=== PATIENT | female | born 1990 | race Caucasian/White ===

== ENCOUNTER → 2016-05-01 | Outpatient (CLI) | payer BC, OTHER ==
[~2016-05-01] MED LIST: MTR600X PO; PEDICHW; PRENTAB26 PO
[2016-05-01 16:57] LABS: INFLUENZA A PCR POS for Influ A (NEG); INFLUENZA B PCR Neg for Influ B (NEG)
== END | disposition home or self-care (01) ==
LOC: C.LABSPEC 15:08
PROVIDERS: ATTEND Family Medicine
DX: J06.9 Acute upper respiratory infection, unspecified (principal); B97.89 Other viral agents as the cause of diseases classified elsewhere

== ENCOUNTER 2016-06-08 23:55 | Inpatient (IN) | payer OTHER ==
[~2016-06-08] VITALS: Ht 175.3 cm; Wt 89.4 kg
[~2016-06-08 23:55] MED LIST changes: -PRENTAB26 PO
[2016-06-09] MEDS ORDERED: LACTATED RINGER'S 1000ML 1,000 ML IV PRN (00:39)
[2016-06-09] MEDS ORDERED: LACTATED RINGER'S 1000ML 1,000 ML IV SCH (00:39)
--- NOTE | 2016-06-09 01:13 | HISTORY & PHYSICAL EXAMINATION ---
DATE OF ADMISSION: 06/09/2016 CHIEF COMPLAINT: Spontaneous rupture of membranes. HISTORY OF PRESENT ILLNESS: The patient is a 26-year-old 3, para 2, at 40 weeks and 1 day gestation, who was admitted to labor and delivery for spontaneous rupture of membranes which occurred at approximately 10:00 p.m. on 06/08/2016. On arrival, she was grossly ruptured. She was found to be 4 cm, 75% effaced, and -2 station. heart tones are category 1, contractions every 2-3 minutes. Her care has been uncomplicated and she is GBS negative. PAST MEDICAL HISTORY: Significant for -induced hypertension with her first . PAST SURGICAL HISTORY: [place] teeth removed and appendectomy. SOCIAL HISTORY: The patient denies tobacco, alcohol or drug use. MEDICATIONS: vitamins. ALLERGIES: No known drug allergies. LABS: Blood type is O positive, group B strep negative, rubella immune, hepatitis B surface antigen negative, RPR nonreactive. PHYSICAL EXAMINATION: VITAL SIGNS: Blood pressure is 125/82, heart rate of 118, temperature of 98.1, respiration rate of 18. GENERAL: The patient is awake, alert and oriented x3. She is in moderate distress from her contractions. HEART: Regular rate and rhythm. LUNGS: Clear to auscultation bilaterally. ABDOMEN: Gravid uterus, appropriate for gestational age. Bowel sounds present x4. EXTREMITIES: No clubbing, cyanosis or calf tenderness. VAGINAL EXAM: She is currently 4 cm, 75% effaced, and -2 station, with clear amniotic fluid noted. heart tones are category 1. ASSESSMENT AND PLAN: A 26-year-old 3, para 2, at 40 weeks and 1 day gestation, will be admitted to labor and delivery for active labor and spontaneous rupture of membranes. She currently does not want an epidural. We will augment labor as needed and anticipate vaginal delivery.
[2016-06-09 01:21] LABS: MEAN CELL VOLUME 79.4 fL (80-100); MEAN CORPUSCULAR HEMOGLOBIN 26.8 pg (25-34); MEAN CORPUSCULAR HGB CONC 33.7 g/dl (32-36); MEAN PLATELET VOLUME 10.5 fL (7.4-10.4); PLATELET COUNT 200 K/uL (130-400); RED BLOOD COUNT 4.41 M/uL (4.2-5.4); WHITE BLOOD COUNT 9.75 K/uL (4.8-10.8)
[2016-06-09] MEDS ORDERED: PRENTAB26 PO (01:30)
[2016-06-09 01:31] VITALS: Ht 175.3 cm; Wt 89.4 kg
[2016-06-09] MEDS ORDERED: OXYTOCIN 30 UNITS/500ML NSS IV ONE (06:55)
[2016-06-09] MEDS ORDERED: ACETAMINOPHEN 325 MG TAB PO PRN (07:15)
[2016-06-09] MEDS ORDERED: DIPHTHERIA/TETANUS/PERTUSSIS 0.5 ML SYR/VIAL IM. ONE (07:15)
[2016-06-09] MEDS ORDERED: ACETAMINOPHEN/CODEINE 300/30MG TAB PO PRN ×2 (07:15)
[2016-06-09] MEDS ORDERED: BENZOCAINE 20% AER SPR 82.5 GM CAN EXT PRN (07:15)
[2016-06-09] MEDS ORDERED: HYDROCORTISONE ACETATE 25 MG SUPP PR PRN (07:15)
[2016-06-09] MEDS ORDERED: OXYCODONE/ACETAMINOPHEN 5-325 TAB PO PRN (07:15)
[2016-06-09] MEDS ORDERED: LANOLIN OINT EXT PRN ×2 (07:15)
[2016-06-09] MEDS ORDERED: IBUPROFEN 600 MG TAB PO PRN (07:15)
[2016-06-09] MEDS ORDERED: SUPERCREAM 0.870 % 15GM JAR EXT PRN (07:15)
[2016-06-09] MEDS ORDERED: OXYTOCIN 30 UNITS/500ML NSS IV PRN (07:15)
[2016-06-09] MEDS: PRENATAL VITAMIN TAB PO SCH (08:12)
[2016-06-09] MEDS: DOCUSATE SODIUM 100 MG CAP PO SCH ×2 (08:12→20:25)
[2016-06-09] MEDS: FERROUS SULFATE 325 MG TAB PO SCH (08:12)
--- NOTE | 2016-06-09 08:55 | DELIVERY SUMMARY ---
DATE OF OPERATION: 06/09/2016 DATE OF DELIVERY: 06/09/2016. TIME OF DELIVERY: 6:57 a.m. DELIVERY OF PLACENTA: 7 a.m. DELIVERY NOTE: The patient is a 26-year-old 3, para 2 at 40 weeks and 1 day gestation who presented to labor and delivery with spontaneous rupture of membranes that occurred at 10 p.m. on 06/08/2016. She was harpal spontaneously on her own every 2-3 minutes on arrival. She was found to be 4 cm, 75% efface, -2 station. She progressed on her own. She did not receive an epidural for anesthesia. She reached complete dilation at 6:51 a.m. with the urge to push. She pushed to delivery at 6:57 a.m. She delivered a viable male infant in the left occiput anterior position to an intact perineum. Once the baby was delivered it was placed on the patient's abdomen. Cord was clamped x2 and cut. Apgars were 8 at 1 minute and 9 at 5 minutes. Please see nursing notes for further baby assessment. Cord blood was then obtained and an intact placenta with 3-vessel cord was delivered at 7 a.m. The lower uterine segment and vagina was cleared of any blood clots and debris. Oxytocin infusion was then begun. Exploration of the perineum noted no lacerations. Estimated blood loss was 250 mL. All sponge and instrument counts were found to be correct x2. Both patient and baby tolerated the delivery well and were in recovery with stable vital signs. I attest to the content of the Intraoperative Record and any orders documented therein. Any exceptio ns are noted below.
[2016-06-09 09:30] VITALS: BP 126/70; PULSE 71; TEMP 36.8
[2016-06-09 13:10] VITALS: BP 116/74; PULSE 72; TEMP 36.7
[2016-06-09 15:35] VITALS: BP 118/71; PULSE 68; TEMP 36.8; O2SAT 98
[2016-06-09 20:25] VITALS: BP 117/74; PULSE 67; TEMP 37; O2SAT 98
[2016-06-10 00:40] VITALS: BP 122/79; PULSE 75; TEMP 36.6; O2SAT 99
[2016-06-10 04:10] VITALS: BP 117/75; PULSE 63; TEMP 36.5; O2SAT 97
[2016-06-10 06:21] LABS: HEMATOCRIT 31.7 % (37-47)
[2016-06-10 08:15] VITALS: BP 118/74; PULSE 76; TEMP 36.9; O2SAT 99
[2016-06-10] MEDS: FERROUS SULFATE 325 MG TAB PO SCH (08:15)
[2016-06-10] MEDS: PRENATAL VITAMIN TAB PO SCH (08:15)
[2016-06-10] MEDS: DOCUSATE SODIUM 100 MG CAP PO SCH ×2 (08:15→20:00)
--- NOTE | 2016-06-10 10:00 | OB/GYN Progress Note ---
[facility] Progress Note Date of Service Jun 10, 2016. Subjective conversation w/ patient, physical exam Ambulation: ambulating normally Voiding: no voiding problems Passing Gas: Yes Diet Tolerance: Regular Diet Lochia: Moderate Feeding Type: Breast Feeding Review of Systems Constitutional: No chills, No fatigue, No fever, No problem reported, No sweats , No weakness, No weight loss Respiratory: No cough, No dyspnea at rest, No dyspnea on exertion, No hemoptysis, No problem reported, No shortness of breath, No sputum, No wheezing Cardiac: No PND, No chest pain, No claudication, No edema, No orthopnea, No palpitations, No problem reported Breast: No breast lump, No breast pain, No change in shape, No nipple discharge , No problem reported, No see HPI Abdomen: No GI bleeding, No constipation, No diarrhea, No nausea, No pain, No problem reported, No vomiting Female : No abnormal vaginal bleeding, No dysuria, No hematuria, No incontinence, No problem reported, No see HPI, No urinary frequency, No vaginal discharge PPD#2 pt doing well no complaints disch AM Objective Vital Signs Date Time Temp Pulse Resp B/P Pulse Ox O2 Delivery O2 Flow Rate FiO2 06/10/16 08:15 Room Air 06/10/16 08:15 36.9 76 18 118/74 99 Room Air 06/10/16 04:10 36.5 63 16 117/75 97 Room Air 06/10/16 00:40 36.6 75 18 122/79 99 Room Air 06/10/16 00:40 99 Room Air 06/09/16 20:25 37.0 67 16 117/74 98 Room Air 06/09/16 15:35 36.8 68 16 118/71 98 Room Air 06/09/16 15:35 Room Air 06/09/16 13:10 36.7 72 16 116/74 Room Air Laboratory Results Last 24 Hours Test 06/10/16 05:46 Hemoglobin 10.4 g/dL Hematocrit 31.7 %
[2016-06-10 16:00] VITALS: BP 119/78; PULSE 67; TEMP 36.9
[2016-06-10] MEDS ORDERED: BISACODYL 5 MG TABEC PO SCH (20:00)
[2016-06-11 00:20] VITALS: BP 117/73; PULSE 67; TEMP 36.5; O2SAT 98
[2016-06-11] MEDS ORDERED: BISACODYL 10 MG SUPP PR PRN (07:00)
[2016-06-11 07:15] LABS: HEMATOCRIT 32.5 % (37-47); MEAN CELL VOLUME 80.6 fL (80-100); MEAN CORPUSCULAR HEMOGLOBIN 26.6 pg (25-34); MEAN CORPUSCULAR HGB CONC 32.9 g/dl (32-36); MEAN PLATELET VOLUME 10.2 fL (7.4-10.4); PLATELET COUNT 160 K/uL (130-400); RED BLOOD COUNT 4.03 M/uL (4.2-5.4); WHITE BLOOD COUNT 7.58 K/uL (4.8-10.8)
[2016-06-11 07:46] VITALS: BP 119/77; PULSE 65; TEMP 36.3; O2SAT 100
[2016-06-11] MEDS: PRENATAL VITAMIN TAB PO SCH (07:54)
[2016-06-11] MEDS: FERROUS SULFATE 325 MG TAB PO SCH (07:54)
[2016-06-11] MEDS: DOCUSATE SODIUM 100 MG CAP PO SCH (07:54)
--- NOTE | 2016-06-11 09:11 | Discharge Instructions ---
Discharge Instructions Date of Service Jun 11, 2016. Admission Reason for Admission: Active Labor At Term, Srom, Term Discharge Discharge Diagnosis / Problem: Vaginal Delivery Discharge Goals Goal(s): Routine recovery after delivery Medications Continue Dispensed Medications: supercream, dermaplast, tucks, lansinoh Activity Recommendations Activity Limitations: per Instructions/Follow-up section . Instructions / Follow-Up Instructions / Follow-Up ACTIVITY RECOMMENDATIONS: * Gradual return to full activity over the next 2-3 weeks. * No lifting - nothing heavier than baby over the next 2-3 weeks. * Do not engage in vigorous exercise, sexual activity or sports until cleared by your physician. * Do not drive or operate any motorized equipment until cleared by your physician. * You may shower/bathe daily. BREAST CARE: If you are not breast feeding: * Wear a supportive bra 24 hours a day for one to two weeks. * Avoid stimulating your breasts and nipples as much as possible during the first few weeks after delivery. * When taking a shower, have the warm water hit your back, not breasts. * When your breasts feel full, apply ice packs. Usually three to four times a day helps ease the discomfort. * Take a mild pain medication (Tylenol/Motrin) when you are uncomfortable. If breast feeding: * Use breast milk to lubricate nipples. Lansinoh cream may be used for sore nipples. You do not need to remove cream prior to breast feeding. If using a different brand of cream, check the label for directions regarding removal of cream prior to nursing. * Wear a supportive bra. * If having problems with breasts or breast feeding, call a medical cost consultant or your health care provider. EPISIOTOMY CARE: After delivery, if you have an episiotomy (stitches), the following steps will ease discomfort and aid healing. * For the first 24 hours after delivery, place ice packs next to your episiotomy to help reduce swelling. * After the first 24 hour-period, sitz baths, either portable or in the tub, are suggested. A shower with a shower arm sprayed over the episiotomy may be comforting. * [place] care should be done after each voiding and bowel movement. Squirt warm water from a plastic bottle over the perineum (region of the body between the anus and urinary opening) and pat dry. * Use Dermoplast to ease discomfort. Shake container. [place] directly over the episiotomy. * Place a Tucks on a clean sanitary pad next to your episiotomy. OVER THE COUNTER MEDICATION: * For discomfort or pain, you may use Acetaminophen (Tylenol), Ibuprofen (Advil ), or Naproxen (Aleve) following the package directions. * For constipation you may use Colace following the package directions. SPECIAL CARE INSTRUCTIONS: When you are discharged from the hospital, it is important for you to follow the instructions listed below: * During the first week at home, you should be able to care for yourself and your baby. In addition, the usual light household activities are encouraged. * Limit your activities to the way you feel. Do not try to clean the house or move furniture. Be sensible. * If you actively engage in sports and have done so up until the time of your delivery, you may resume these activities as soon as you feel able. This may take up to one month or even longer. Use good judgment. * Continue to take your vitamins for at least six weeks after the of your baby. * Your diet need not be limited unless you were on a special diet before your delivery. Breast-feeding mothers need around 2500 calories per day and at least 64-80 ounces of fluid per day (8 to 10 glasses). * You should eat foods from the four major food groups. Crash diets or fad diets are to be avoided. Eating lean meats, fresh fruits and vegetables, low-fat dairy products, high fiber foods and a regular exercise program, will help you get back to your pre- weight without putting your health at risk. * Constipation is sometimes a problem after delivery. Take a mild laxative as needed. If breast feeding, Milk of Magnesia is acceptable to use. You may use a suppository or Fleets enema if no episiotomy. * A daily shower or tub bath is suggested. Be sure to thoroughly and gently dry the perineum. * A bloody vaginal discharge will usually continue until around four weeks post . A small amount of bleeding may continue for as long as six weeks. Vaginal discharge changes from the bright red bleeding after delivery to pink then brownish and finally yellowish-pink before becoming white and disappearing. * Bleeding may increase with activity. Your first period may come in 4-8 weeks. If you are breast feeding, your period may be delayed even longer. * [employer] (sex) can begin whenever both you and your partner feel comfortable and do not have any form of genital infection. It is recommended that you wait until after your return appointment and discuss with your physician. If you have questions, please talk to your health care practitioner. A condom should be used to prevent infection and . * Foreplay, gentle intercourse and lubrication is very important the first several times to prevent pain. A water-based lubricant such as K-Y jelly or Astroglide may be used. * Tampons may be used six weeks after delivery. * Douching should be avoided for 6 weeks after delivery. * If you have RH negative blood and your baby is RH positive, you will receive RHOGAM by injection prior to discharge. The nurse will give you a card to keep with you that has the date and place that you received RHOGAM after delivery. * During your care, you had a Rubella screen done to check for the presence of rubella antibodies in your blood. If your test was negative, you will receive a Rubella vaccine prior to discharge. This vaccine may cause a fever, soreness at the injection site and flu-like symptoms. If these symptoms persist, notify your health care practitioner. is not advised for three months after a Rubella vaccine. There is a higher chance of having a baby with defects if conceived within three months of getting the vaccine. * If you were discharged 24 hours from delivery or before 48 hours: Visiting nurses will come to your home 48 hours after discharge to assess you and your baby. The visiting nurse will meet with you while you are in the hospital to arrange a time and get directions to your home. * Verbalizes understanding of car seat law as reviewed with patient nursing. * Car Seat hand-out given and reviewed with patient by nursing. * Shaken baby information reviewed with patient by nursing. Call you doctor if: * Heavy bleeding (saturating several pads an hour) or passing clots the size of your fist. * A fever >101 degrees F (38.3 degrees C) on two occasions four hours apart and/or chills. * Unusual pain in the pelvic or vaginal areas. * "Baby Blues" lasting longer than two weeks. If you have any questions or concerns, call your health care practitioner at . FOLLOW-UP VISIT: * Please call the office at to schedule a 6 week examination. It is important you keep this appointment. * It is important for you to make arrangements for either yearly or twice yearly check-ups thereafter. Current Hospital Diet Patient's current hospital diet: Regular OB Diet Discharge Diet Recommended Diet: Regular OB Diet Pending Studies Studies pending at discharge: no Medical Emergencies . Who to Call and When: Medical Emergencies: If at any time you feel your situation is an emergency, please call 911 immediately. . Non-Emergent Contact Non-Emergency issues call your: Assistant Service Manager . . "Provider Documentation" section prepared by Froy Briggs. VTE Core Measure Inpt VTE Proph given/why not?: Treatment not indicated
--- NOTE | 2016-06-11 09:12 | OB/GYN Progress Note ---
[facility] Progress Note Date of Service Jun 11, 2016. Subjective conversation w/ patient, physical exam Ambulation: ambulating normally Voiding: no voiding problems Passing Gas: Yes Diet Tolerance: Regular Diet Lochia: Small Feeding Type: Breast Feeding Pain: 04/13 Notes: Doing well, no concerns. Would like to go home today. Objective Vital Signs Date Time Temp Pulse Resp B/P Pulse Ox O2 Delivery O2 Flow Rate FiO2 06/11/16 07:46 36.3 65 16 119/77 100 Room Air 06/11/16 00:20 36.5 67 18 117/73 98 Room Air 06/11/16 00:20 98 Room Air 06/10/16 16:00 36.9 67 18 119/78 Room Air 06/10/16 16:00 Room Air Physical Exam General Appearance: WELL-APPEARING Respiratory/Chest: chest non-tender, lungs clear Cardiovascular: regular rate, rhythm Abdomen: normal bowel sounds, soft Fundus: Firm Extremities: normal range of motion, non-tender, no calf tenderness Laboratory Results Last 24 Hours Test 06/11/16 06:55 White Blood Count 7.58 K/uL Red Blood Count 4.03 M/uL Hemoglobin 10.7 g/dL Hematocrit 32.5 % Mean Corpuscular Volume 80.6 fL Mean Corpuscular Hemoglobin 26.6 pg Mean Corpuscular Hemoglobin Concent 32.9 g/dl RDW Standard Deviation 46.6 fL RDW Coefficient of Variation 15.9 % Platelet Count 160 K/uL Mean Platelet Volume 10.2 fL Assessment and Plan Post- Day Number: 2 Continue Routine Care: -D/C home today -F/U in 6 weeks.
[2016-06-11 11:44] VITALS: BP_DIAS 77; PULSE 65; TEMP 36.3
== END 2016-06-11 11:44 | disposition home or self-care (01) | DRG 775 ==
LOC: C.OPB 23:55 → C.LD 23:56 → C.OPB 06-09 00:40 → C.LD 06-09 00:40 → C.OBG 06-09 13:46
PROVIDERS: ADMIT Obstetrics & Gynecology; ATTEND Obstetrics & Gynecology
PROC: 10E0XZZ Delivery of Products of Conception, External Approach (ICD-10-PCS; principal; 2016-06-09)
DX: O42.02 Full-term premature rupture of membranes, onset of labor within 24 hours of rupture (principal); O99.214 Obesity complicating childbirth; Z37.0 Single live birth; O48.0 Post-term pregnancy; E66.9 Obesity, unspecified; O99.02 Anemia complicating childbirth; D64.9 Anemia, unspecified; Z3A.40 40 weeks gestation of pregnancy; Z68.29 Body mass index [BMI] 29.0-29.9, adult

== ENCOUNTER 2016-11-08 18:11 | Emergency (ER) | payer OTHER ==
[~2016-11-08] VITALS: Ht 172.7 cm; Wt 77.0 kg
[~2016-11-08 18:11] MED LIST changes: -MTR600X PO; -PEDICHW; +PRENTAB26 PO
[2016-11-08 18:12] VITALS: TEMP 36.5; Ht 172.7 cm; Wt 77.0 kg
--- NOTE | 2016-11-08 18:41 | EMERGENCY ROOM VISIT NOTE ---
History First contact with patient: 18:17 Chief Complaint: LACERATION/CUT (SUT/DERMABOND) Stated Complaint: CUT L THUMB Nursing Triage Summary: lac on thumb pad on the left side while using a knife to get wax out of a candle warmer History of Present Illness The patient is a 26 year old female who presents to the Emergency Room with complaints of a laceration to her left thumb. The patient was attempting to pry cold wax out of a wax warmer and cut her thumb. The patient denies any significant pain or bleeding. Tetanus immunization is up-to-date. The patient is [id number]. Review of Systems 6 system review was performed and was negative except for pertinent positives and negatives as indicated in history of present illness Past Medical/Surgical History Medical Problems: (1) Active labor at term (2) SROM (spontaneous rupture of membranes) (3) Term Family History FH: cancer FH: diabetes mellitus Social History Smoking Status: Former Smoker Alcohol Use: none Drug Use: none Marital Status: single Occupation Status: employed Current/Historical Medications No Active Prescriptions or Reported Meds Physical Exam Vital Signs Date Time Temp Pulse Resp B/P (MAP) Pulse Ox O2 Delivery O2 Flow Rate FiO2 11/08/16 18:12 36.5 89 16 138/93 100 Room Air Physical Exam CONSTITUTIONAL: Healthy and well nourished. Alert and oriented X 3 with positive affect. MUSCULOSKELETAL: Examination of the left thumb digital pad shows a 1 cm laceration that is well approximated. The patient is playing with the wound, trying to open it with difficulty. There is no active bleeding. Capillary refill is less than 2 seconds. INTEGUMENTARY: No rash or other significant dermatologic conditions noted. NEUROLOGIC: No focal neurologic deficits noted. Left thumb tip is sensory intact. Medical Decision & Procedures ED Course Patient history and physical exam were performed. Nurse's notes were reviewed. Vital signs were reviewed and were normal. I did discuss wound treatment, including primary closure with sutures versus allowing the wound to heal by secondary intention. I did discuss the risks and benefits of each procedure. The patient reports that she would rather avoid sutures, and wanted to know if she could just keep the wound clean and covered. I explained that this certainly is an acceptable option, especially since the wound does not have a tendency to open. The wound was cleansed and covered with a bacitracin dressing in the emergency department. She was instructed to watch for any signs of infection, and follow-up with her family doctor as needed for further wound management. The patient was happy with plan of care, and voiced understanding of all discharge instructions. Medical Decision Medication Reconcilliation Current Medication List: was personally reviewed by me Blood Pressure Screening Patient's blood pressure: Normal blood pressure Impression Primary Impression: Laceration of left thumb Departure Information Dispostion Home / Self-Care Prescriptions No Active Prescriptions or Reported Meds Forms HOME CARE DOCUMENTATION FORM, IMPORTANT VISIT INFORMATION Patient Instructions My [facility] Additional Instructions Keep wound clean and covered with an antibiotic ointment and bandage until it heals. Intermittently apply ice as needed for swelling and pain. Ibuprofen or Tylenol if needed for additional pain relief. Watch for any signs of developing infection. Problem Qualifiers Primary Impression: Laceration of left thumb Encounter type: initial encounter Damage to nail status: without damage Foreign body presence: without foreign body Qualified Codes: S61.012A - Laceration without foreign body of left thumb without damage to nail, initial encounter
[2016-11-08 18:43] VITALS: BP 131/89; PULSE 75; O2SAT 98
== END 2016-11-08 18:44 | disposition home or self-care (01) ==
LOC: C.EDB 18:11 → C.EDD 18:44
DX: S61.012A Laceration without foreign body of left thumb without damage to nail, initial encounter (principal); W26.8XXA Contact with other sharp object(s), not elsewhere classified, initial encounter; Y93.89 Activity, other specified; Y99.8 Other external cause status; Z87.891 Personal history of nicotine dependence; Z83.3 Family history of diabetes mellitus

== ENCOUNTER 2017-04-07 08:52 | Emergency (ER) | payer OTHER ==
[~2017-04-07] VITALS: Ht 177.8 cm; Wt 79.1 kg
[2017-04-07 09:11] VITALS: TEMP 36.7; Ht 177.8 cm; Wt 79.1 kg
[2017-04-07] MEDS ORDERED: KETOROLAC TROMETHAMINE 10 MG TAB PO STA (09:35)
[2017-04-07] MEDS ORDERED: CYCLOBENZAPRINE HCL 5 MG TAB PO ONE (09:45)
--- NOTE | 2017-04-07 10:16 | DIAGNOSTIC IMAGING REPORT ---
C-SPINE ROUTINE 4 OR 5 VIEWS HISTORY: 27 years-old Female neck pain/spasm acute posterior neck pain with stiffness for several weeks. No known injury. COMPARISON: None available TECHNIQUE: 5 views of the cervical spine FINDINGS: 7 cervical type vertebral segments are present. No acute fracture, subluxation or significant degenerative changes. Evaluation of the right neuroforamina is limited secondary to positioning. There is mild straightening of the cervical lordosis. No prevertebral soft tissue swelling. There are 2 ossifications noted within the region of the oral pharynx below the level of the mandible measuring up to 10 mm. Imaged lung apices appear clear. IMPRESSION: 1. Straightening of the normal cervical lordosis may be secondary to paraspinal muscle spasm or patient positioning. No acute fracture or subluxation. 2. Two ossifications in the region of the oral pharynx below the level of the mandible may reflect tonsilliths or sialoliths. The above report was generated using voice recognition software. It may contain grammatical, syntax or spelling errors. Electronically signed by: Jeffery Palacios M.D. 04/07/2017 10:15 AM Dictated Date/Time: 04/07/2017 10:10 AM
[2017-04-07] MEDS ORDERED: CYCL10TA6 PO (11:14)
[2017-04-07] MEDS ORDERED: KETO10TA PO (11:14)
[2017-04-07 11:34] VITALS: BP 137/93; PULSE 79; O2SAT 100
--- NOTE | 2017-04-08 16:24 | EMERGENCY ROOM VISIT NOTE ---
ED Visit Note First contact with patient: 09:17 Chief Complaint: Neck pain. History of Present Illness: Ms. Wise is a 27-year-old white female who ambulates into the ED complaining of neck pain. A nanette reports her symptoms started approximately 6 weeks ago. Her symptoms of pain lasted approximately 4 days and then self resolved. She had a second episode which once again self resolved. Her current episode started yesterday. She reports she noticed the discomfort start when she woke up from sleep. Since that time it has been constant and gradually increasing in intensity. She places her discomfort mostly in the upper right trapezius area. She reports she has a baseline throbbing pain and then she starts to have muscle spasm. She currently rates her discomfort 4/10. Her pain is nonradiating. Her pain worsens with all movements of the cervical spine but most prominently with extension and right lateral rotation. She has not identified any alleviating factors related to the pain. She has not taken any medication but does report she has been using hot packs on her neck with minimal relief of her discomfort. She denies any current associated symptoms but does reports she's had headaches with her first to previous episodes but not her current. Additionally she denies fevers, chills, sweats, skin eruptions, skin color changes, dizziness, lightheadedness, visual changes, hearing changes, difficult speaking, difficulty swallowing, upper respiratory tract symptoms, sinus congestion, nasal drainage, sore throats, voice changes, painful talking, drooling, recent direct or repetitive trauma to the cervical spine, cough, wheezing, shortness of breath, nausea, vomiting, upper extremity weakness/ numbness/tingling. Review of Systems: As noted above in history of present illness. 8 body systems were reviewed and found to be negative as noted above. Past Medical History: As previously noted, status post wisdom teeth extraction and unspecified oral surgery. Current Medications: Patient denies. Allergies to Medications: Patient denies. Social History: Patient is currently employed; she feels safe in her home environment; she denies tobacco use and admits to alcohol use. Physical Examination: Vital Signs: Date Time Temp Pulse Resp B/P (MAP) Pulse Ox O2 Delivery O2 Flow Rate FiO2 04/07/17 11:34 79 137/93 100 04/07/17 09:11 36.7 92 20 153/91 100 Room Air GENERAL: 27-year-old female in mild to moderate distress due to pain, nontoxic- appearing, afebrile and hemodynamically stable. NEUROLOGICAL: Awake, alert and oriented to person, place and time. Answering questions appropriately and following commands. Normal gait. Good hand eye coordination. No focal motor sensory deficits. SKIN: Warm, dry and pink. No soft tissue eruptions or trauma noted. HEENT: Atraumatic and normocephalic. PERRLA. Sclera white and conjunctiva pink. No drainage from naris. Oral cavity moist and pink. Pharynx is nonerythematous or edematous. Speech normal. No lymphadenopathy. Trachea midline. No jugular venous distention. BACK: No tenderness over the bony cervical and thoracic spine. No bony deformity, bony crepitus, swelling, ecchymosis or step-offs. Moderate right- sided trapezius and paraspinous muscles with significant spasm. No tenderness over the left side. Decreased range of motion of the cervical spine due to pain.. No paraspinous muscle tenderness or spasm. No CVA tenderness. THORAX: Lungs sounds are clear to auscultation and equal bilaterally with symmetrical chest wall. HEART: Regular rate and rhythm. No gallops, rubs or murmurs are appreciated. ABDOMEN: Flat, soft and nontender. Positive bowel sounds in all quadrants. No guarding, rigidity or organomegaly. UPPER EXTREMITIES: Moves arms well on command and with purpose. 5/5 muscle strength in all movements of the shoulders, elbows, forearms, wrists and hands. 2+ bicipital, tricipital and brachial radialis deep tendon reflexes intact and equal bilaterally. Able to distinguish light sensations through all dermatomes of the arms and hands. ED Course: Patient is assessed as noted above. Patient's medication list was reviewed. Cervical Spine X-Rays: Were read by myself and the radiologist showing no acute fractures or subluxations. There is straightening of the normal cervical lordosis. There are 2 ossifications noted in the region of the oral pharynx consistent with tonsilliths or sialoliths. Patient was given 10 mg of Toradol by mouth and 10 mg of Flexeril by mouth for her symptoms. Patient was reassessed multiple times during her stay in the emergency department. Patient was educated about today's findings and instructed on her treatment plan ; she verbalized understanding and agreement with this plan. Clinical Impression: Torticollis. Decision-Making: Shortly in my differential diagnosis I considered torticollis, meningitis, cervical fracture and other causes. Disposition: Patient discharged home in stable condition; prior to departure she was reassessed and subjectively reported she was feeling slightly better and rated her discomfort 3/10. Also noted that she had increased range of motion in all movements of the cervical spine Plan: Patient was prescribed Toradol 10 mg every 6 hours for pain and Flexeril 10 mg every now for muscle spasm. Patient I'll lengthy conversation on ice and heat therapy. Patient is encouraged to follow-up with her PCP for recheck in 2-3 days. Patient was encouraged return ED for worsening pain, fevers, headaches, vomiting , upper extremity weakness/numbness/tingling or any new/concerning symptoms.
== END 2017-04-07 11:35 | disposition home or self-care (01) ==
LOC: C.EDB 08:53 → C.EDA 11:35
DX: M43.6 Torticollis (principal)

== ENCOUNTER 2021-05-05 07:47 | Inpatient (IN) ==
[2021-05-05] MEDS ORDERED: LACTATED RINGER'S 1,000 ML IV PRN (08:08)
[2021-05-05 10:01] LABS: Hematocrit (blood only) 39.9 % (37-47); Hemoglobin 13.6 g/dL (12.0-16.0); Mean Corpuscular Hemoglobin 30.1 pg (25-34); Mean Corpuscular Hgb Conc 34.1 g/dL (32-36); Mean Corpuscular Volume 88.3 fL (80-100); Platelet Count 203 K/uL (130-400); RDW Coefficient of Variation 13.8 % (11.5-14.5); Red Blood Count 4.52 M/uL (4.2-5.4); White Blood Count 12.42 K/uL (4.8-10.8)
[2021-05-05] MEDS ORDERED: SODIUM CHLORIDE 0.9% INJ 10 ML VIAL ONE (10:20)
[2021-05-05] MEDS ORDERED: ePHEDrine sulfate 50 MG/ML AMP ONE (10:20)
[2021-05-05] MEDS ORDERED: fentaNYL 2MCG/ML ROPIVACAINE 1.25MG/ML 100 ML BAG EPI ONE (10:21)
[2021-05-05] MEDS ORDERED: fentaNYL citrate 100 MCG/2 ML VIAL ONE (10:21)
--- NOTE | 2021-05-05 10:23 | History & Physical Report ---
Date of Service May 05, 2021 Assessment & Plan (1) Post-dates : Plan: Admit in labor (2) COVID-19 affecting in third trimester: Admission and Anticipated Discharge Date Admission Date: May 05, 2021 History of Present Illness Chief Complaint: labor Primary Care Provider: Ramsey Pérez MD [id number] at 40+ weeks admitted for induction of labor. GBS is negative. Covid is positive. Actively harpal on admission. Allergies Allergy/AdvReac Type Severity Reaction Status Date / Time No Known Allergies Allergy Unverified 04/07/17 09:25 Home Medications Medication Instructions Recorded Confirmed Type aspirin 325 mg tablet 325 mg PO DAILY 05/05/21 05/05/21 History ferrous sulfate 325 mg (65 mg 325 mg PO DAILY 05/05/21 05/05/21 History iron) tablet (Iron (ferrous sulfate)) prenat.vits,charlotte,[id number] 1 tab PO DAILY 05/05/21 05/05/21 History Review of Systems Review of Systems: All systems reviewed & are unremarkable except as noted in HPI & below Physical Exam Constitutional: WD/WN, vitals as above Eyes: PERRL, conjunctivae normal, anicteric sclerae Neck: trachea midline, no thyromegaly Respiratory: normal respiratory effort, lungs clear to auscultation Cardiovascular: RRR, no murmur, no edema Skin: no rashes, warm and dry Neurologic: patellar DTR's 2+ bilat, sensation intact Genitourinary: OB Exam Abdomen: + fundal height and + vertex Manual OB Exam: + cervical dilation 6 cm, + cervical effacement 80% and + station -1 OB Exam Monitor Tracing: + external FHT monitor used, + external uterine monitor used, + category I and + normal FHT variability Results & Data Results & Data ([facility]) Vital Signs (Past 12 Hours) Vital Signs Temp Pulse Resp BP 05/05/21 09:47 93 H 122/84 05/05/21 09:39 36.6 C 18 Laboratory Results Laboratory Results - last 72 hr 05/05/21 09:53 WBC 12.42 H RBC 4.52 Hgb 13.6 Hct 39.9 MCV 88.3 MCH 30.1 MCHC 34.1 RDW Std Deviation 45.0 RDW Coeff of Qiana 13.8 Plt Count 203 MPV 11.0 H Code Status & VTE Plan VTE Prophylaxis Plan VTE Prophylaxis will be ordered: No
[2021-05-05] MEDS ORDERED: BUTORPHANOL TARTRATE 1 MG/ML VIAL IV STA (12:14)
--- NOTE | 2021-05-05 12:15 | Communication Note ---
Date of Service: May 05, 2021 I saw the patient and evaluated for labor epidural placement. She has had one baby with epidural and 2 without. I discussed risks and benefits and the patient agreed, although she had a great deal of anxiety about numbness. I did discuss that we could place the epidural catheter and start the infusion without bolusing, that she could increase her level with PCEA dosing, and that if she decided she did not like the feeling, the infusion could be stopped and sensation would return in 1-2 hours. The patient was prepped, draped, but the patient had severe anxiety immediately prior to performing the procedure. After several minutes of discussion, the patient elected not to have the procedure done and she was moved back in to bed to improve monitoring. heart tones were reassuring prior to and after positioning for the epidural.
[2021-05-05] MEDS ORDERED: BUTORPHANOL TARTRATE 1 MG/ML VIAL ONE (12:16)
[2021-05-05] MEDS: BUPIVACAINE 0.25% 30 ML VIAL ONE ×2 (13:00→14:57)
[2021-05-05] MEDS ORDERED: PROMETHAZINE HCL 6.25 MG in SODIUM CHLORIDE 0.9% 50 ML IV PRN (13:06)
[2021-05-05] MEDS ORDERED: ONDANSETRON INJ 2 MG/ML 2 ML VIAL IV PRN (13:06)
[2021-05-05] MEDS ORDERED: ePHEDrine sulfate 50 MG/ML AMP IV PRN (13:06)
[2021-05-05] MEDS ORDERED: NALBUPHINE HCL INJ 10 MG/ML AMP IV PRN (13:06)
[2021-05-05] MEDS ORDERED: NALOXONE HCL 0.4 MG/1 ML VIAL/CARP IV PRN (13:06)
[2021-05-05] MEDS ORDERED: diphenhydrAMINE 50 MG/ML VIAL IV PRN (13:06)
[2021-05-05] MEDS ORDERED: NALOXONE HCL 1 MG in SODIUM CHLORIDE 0.9% 1000ML 1,000 ML IV PRN (13:06)
[2021-05-05] MEDS ORDERED: fentaNYL 2MCG/ML ROPIVACAINE 1.25MG/ML 100 ML BAG EPI PRN (13:06)
--- NOTE | 2021-05-05 13:06 | Communication Note ---
Date of Service: May 05, 2021 patient elected to move forward with epidural. please see preop note
--- NOTE | 2021-05-05 13:08 | Anesthesiology Consultation ---
Date of Service May 05, 2021 Assessment & Plan Chart Review Chart Review: Patient NOT seen in Pre Admission Testing and Acceptable Risk for Labor Epidural Consults Requested none ASA ASA2 Proposed Anesthesia Anesthesia Type: Labor Epidural Risk / Benefits Reviewed With: PT / POA / Parent / Guardian, Accepts Plan and Informed Consent Obtained History Height/Weight Height: 5 ft 8 in Weight: 98.43 kg Allergies Allergy/AdvReac Type Severity Reaction Status Date / Time No Known Allergies Allergy Unverified 04/07/17 09:25 Medications Home Medications Medication Instructions Recorded Confirmed Last Taken aspirin 325 mg tablet 325 mg PO DAILY 05/05/21 05/05/21 05/04/21 ferrous sulfate 325 mg (65 mg 325 mg PO DAILY 05/05/21 05/05/21 05/04/21 iron) tablet (Iron (ferrous sulfate)) prenat.vits,charlotte,[id number] 1 tab PO DAILY 05/05/21 05/05/21 05/04/21 Active Medications Generic Name Dose Route Start Last Admin Trade Name Freq PRN Reason Stop Dose Admin Lactated Ringer's 1,000 mls @ 125 mls/hr 05/05/21 08:08 05/05/21 10:30 Lr IV 05/07/21 08:07 999 mls/hr .Q8H PRN Administration L&D Protocol Protocol Exercise / Class Metabolic Activity II 4-5 Yardwork/Stairs/Walk up hill Past Anesthesia History No Hx of Anesthesia Complications and No Family Hx of Anesthesia Complications History of PONV No Hx of PONV and No Hx of Motion Sickness Social History Smoking Status: Former smoker Hx Alcohol Use: No Hx Substance Use: No Physical Exam Vital Signs Last Vital Signs Temp 36.6 C 05/05/21 09:39 Pulse 94 H 05/05/21 13:06 Resp 18 05/05/21 09:39 BP 138/68 05/05/21 13:04 Pulse Ox 89 L 05/05/21 13:06 ENMT Mouth: no dentition abnormality Thyromental Distance: > or= 3.5 Finger Breadths Mallampati Class: II Neck normal visual inspection Respiratory normal respiratory effort Auscultation: lungs clear to auscultation bilaterally Cardiovascular Rate/Rhythm: regular rate and regular rhythm Psychiatric Orientation: alert Testing Laboratory Results 05/05/21 09:53 Blood Type O Positive 05/05/21 09:53 Antibody Screen NEGATIVE 05/05/21 09:53
[2021-05-05] MEDS: OXYTOCIN 30 UNITS/500 ML BAG IV PRN ×2 (13:21→13:55)
--- NOTE | 2021-05-05 13:34 | Delivery Summary ---
Vaginal Delivery Summary Date of Service May 05, 2021 Vaginal Delivery Summary Delivery Note live female JORGE over intact perineum with nuchal cord x1 reduced at time of delivery of head and delayed cord clamping and Apgars 8/9 weight pending. Cord blood obtained followed by spontaneous delivery of intact placenta. No tears. EBL 100 ml. Final sponge and instrument count are correct. Mom and baby stable.
[2021-05-05] MEDS ORDERED: OXYTOCIN 30 UNITS/500 ML BAG IV PRN (13:49)
[2021-05-05] MEDS ORDERED: IBUPROFEN 600 MG TAB PO PRN (13:49)
[2021-05-05] MEDS ORDERED: SUPERCREAM 0.870% 15 GM JAR EXT PRN (13:49)
[2021-05-05] MEDS ORDERED: BENZOCAINE 20% AER SPR 82.5 GM CAN EXT PRN (13:49)
[2021-05-05] MEDS ORDERED: HYDROCORTISONE ACETATE 25 MG SUPP PR PRN (13:49)
[2021-05-05] MEDS ORDERED: DIPHTHERIA/TETANUS/PERTUSSIS 0.5 ML SYR/VIAL IM ONE (13:49)
[2021-05-05] MEDS ORDERED: ACETAMINOPHEN 325 MG TAB PO PRN (13:49)
--- NOTE | 2021-05-05 17:27 | Anesthesia Procedure Note ---
Date of Service May 05, 2021 Anesthesia Post Epidural Note Vital Signs Vital Signs: Temp Pulse Resp BP Pulse Ox 36.6 C 88 16 132/89 98 05/05/21 16:15 05/05/21 16:15 05/05/21 16:15 05/05/21 16:15 05/05/21 16:15 Pain Intensity Abdomen: Pain Intensity: 0 Notes Mental Status: alert / awake / arousable Nausea / Vomiting: adequately controlled Pain: adequately controlled Airway Patency, RR, SpO2: stable & adequate BP & HR: stable & adequate Hydration State: stable & adequate Neuraxial Anesthesia: was administered and sensory block is resolving Anesthetic Complications: no major complications apparent and Pt Satisfied with anesthetic care Epidural: Removed without complications and With tip intact
[2021-05-05] MEDS: DOCUSATE SODIUM 100 MG CAP PO SCH (20:56)
--- NOTE | 2021-05-06 07:22 | Obstetrical Progress Note ---
Date of Service May 06, 2021 Assessment & Plan (1) Post-dates : Continue routine PP care D/c home today at 24 hrs (2) COVID-19 affecting in third trimester: Subjective Ambulation: ambulating normally Voiding: no voiding problems Passing Gas:: No Diet Tolerance:: regular diet Lochia:: Small Feeding Type:: breast feeding Current Pain Level(1-10): 1 Doing well, wants to go home today Physical Exam Constitutional WD/WN, vitals as above Respiratory normal respiratory effort, lungs clear to auscultation Cardiovascular RRR, no murmur, no edema Gastrointestinal (Abdomen) normal bowel sounds, soft, nontender, no hepatosplenomegaly Results & Data ([facility]) Vital Signs (Past 12 Hours) Vital Signs Temp Pulse Resp BP 05/06/21 04:00 36.8 C 72 18 144/72 H 05/05/21 23:50 37 C 73 18 122/79
[2021-05-06 07:33] LABS: Hematocrit (blood only) 37.2 % (37-47); Hemoglobin 12.3 g/dL (12.0-16.0); Mean Corpuscular Hgb Conc 33.1 g/dL (32-36); Mean Corpuscular Volume 87.7 fL (80-100); Mean Platelet Volume 11.3 fL (7.4-10.4); Platelet Count 170 K/uL (130-400); RDW Coefficient of Variation 13.9 % (11.5-14.5); RDW Standard Deviation 44.6 fL (36.4-46.3); Red Blood Count 4.24 M/uL (4.2-5.4); White Blood Count 9.96 K/uL (4.8-10.8)
[2021-05-06] MEDS ORDERED: FERROUS SULFATE 325 MG TAB PO SCH (08:00)
[2021-05-06] MEDS ORDERED: PRENATAL VITAMIN 1 TAB PO SCH (08:00)
[2021-05-06 08:44] LABS: Albumin Globulin Ratio 1.2 (0.9-2); Albumin Level 3.2 gm/dl (3.4-5.0); BUN Creatinine Ratio 18.5 (10-20); Bilirubin,Total 0.9 mg/dl (0.2-1.0); Calcium 8.8 mg/dl (8.5-10.1); Creatinine Clr Calc Pharmacy 183.5 ml/min; Est GFR (African American) 144.7 ml/min; Est GFR (Non-African American) 124.9 ml/min; Globulin 2.7 gm/dl (2.5-4.0); Potassium 3.9 mmol/L (3.5-5.1); Total Protein 5.9 gm/dl (6.0-8.3)
[2021-05-06] MEDS ORDERED: NON-FORMULARY MEDICATION (Ferrous Sulfate [Iron (Ferrous Sulfate)] 325 mg (65 mg iron) Tab PO SCH (09:00)
[2021-05-06] MEDS ORDERED: NON-FORMULARY MEDICATION (Prenat.Vits,Cal,Min-Iron-Folic Tablet) PO SCH (09:00)
[2021-05-06] MEDS: DOCUSATE SODIUM 100 MG CAP PO SCH (09:26)
[2021-05-06 11:28] LABS: Creatinine Urine Random 47.5 mg/dl; Protein Creatinine Ratio Urine 1.2 (0-0.2); Total Protein Urine Random 56.3 mg/dl (0-11.9)
[2021-05-06] MEDS ORDERED: bisacodyL 5 MG TABEC PO SCH (20:00)
[2021-05-07] MEDS ORDERED: bisacodyL 10 MG SUPP PR PRN
== END 2021-05-06 15:05 | disposition home or self-care (01) | DRG 805 ==
LOC: 4W 07:47 → 3N 16:46
DX: Z37.0 Single live birth; U07.1 COVID-19; O48.0 Post-term pregnancy; Z3A.41 41 weeks gestation of pregnancy; O13.4 Gestational [pregnancy-induced] hypertension without significant proteinuria, complicating childbirth; O98.52 Other viral diseases complicating childbirth